=== PATIENT | female | born 1985 | race African-American/Black ===

== ENCOUNTER 2022-02-03 08:56 | Emergency (ER) | payer OTHER ==
[2022-02-03 09:19] VITALS: BP 140/99; PULSE 74; RESP 16; TEMP 98.3; BMI 38.9
== END 2022-02-03 10:05 | disposition home or self-care (01) ==
LOC: FER 08:56
DX: M13.142 Monoarthritis, not elsewhere classified, left hand (principal)
CPT/HCPCS: 73140-TC-LT-FY; 99284-25